=== PATIENT | male | born 1995 | race Caucasian/White ===

== ENCOUNTER 2021-08-24 11:23 | Emergency (ER) | payer MEDICAID, OTHER ==
[~2021-08-24] VITALS: Ht 200.7 cm; Wt 75.0 kg
[2021-08-24 11:33] VITALS: BP 139/91
== END 2021-08-24 12:55 ==
LOC: ER 11:24
DX: I10 Essential (primary) hypertension (principal); R22.2 Localized swelling, mass and lump, trunk
CPT/HCPCS: 99283